=== PATIENT | male | born 1990 | race African-American/Black ===

== ENCOUNTER 2024-04-23 19:06 | Emergency (ER) | payer MEDICAID ==
[~2024-04-23] VITALS: Ht 172.7 cm; Wt 136.0 kg
[2024-04-23 19:11] VITALS: O2SAT 96
[2024-04-23] MEDS: IBUPROFEN 600MG TABLET PO ONE (21:40)
[2024-04-23] MEDS ORDERED: IBUP-2029 MT (22:42)
[2024-04-23] MEDS ORDERED: CEPH500T MT (22:42)
[2024-04-23 23:11] VITALS: BP 146/99; PULSE 80; RESP 18; TEMP 37.16964; O2SAT 100
== END 2024-04-23 23:09 | disposition home or self-care (01) ==
LOC: ER 19:06
DX: N64.4 Mastodynia (principal); E78.00 Pure hypercholesterolemia, unspecified; J45.909 Unspecified asthma, uncomplicated
CPT/HCPCS: 76641; 99284